=== PATIENT | female | born 1995 | race Caucasian/White ===

== ENCOUNTER 2021-11-22 16:40 | Emergency (ER) | payer OTHER ==
[~2021-11-22] VITALS: Ht 162.6 cm; Wt 109.1 kg
[2021-11-22] MEDS ORDERED: SPIR-10 PO (18:22)
[2021-11-22 19:27] VITALS: BP 139/82
== END 2021-11-22 19:36 | disposition home or self-care (01) ==
LOC: M ED 16:40
DX: S93.401A Sprain of unspecified ligament of right ankle, initial encounter (principal); S93.601A Unspecified sprain of right foot, initial encounter; W00.0XXA Fall on same level due to ice and snow, initial encounter; Y92.481 Parking lot as the place of occurrence of the external cause; E28.2 Polycystic ovarian syndrome

== ENCOUNTER → 2023-11-21 | Outpatient (CLI) | payer OTHER, SELFPAY ==
[~2023-11-21] MED LIST: ISOVUE-370 76% 100ML VIAL As Ordered ONE; SPIR-10 PO
== END ==
LOC: M RADPRO 11:29
PROVIDERS: ATTEND Obstetrics & Gynecology
DX: N97.9 Female infertility, unspecified (principal)
CPT/HCPCS: 58340; 74740; Q9967

== ENCOUNTER 2025-01-25 08:57 | Outpatient (CLI) | payer OTHER, SELFPAY ==
[~2025-01-25] VITALS: Ht 162.6 cm; Wt 107.2 kg
[~2025-01-25 08:57] MED LIST changes: -ISOVUE-370 76% 100ML VIAL As Ordered ONE
[2025-01-25 09:20] VITALS: BP 122/80
[2025-01-25] MEDS ORDERED: ZOLO50TA PO (09:25)
[2025-01-25] MEDS ORDERED: HOME MED LIST COMPLETE! XX SCH (09:25)
[2025-01-25] MEDS ORDERED: MULTTAB20 PO (09:25)
[2025-01-25] MEDS ORDERED: ECOT81TA5 PO (09:25)
[2025-01-25] MEDS ORDERED: ACET-683 PO (09:25)
== END 2025-01-25 10:20 | disposition home or self-care (01) ==
LOC: M LDO 08:57
PROVIDERS: ATTEND Specialist
DX: O26.893 Other specified pregnancy related conditions, third trimester (principal); M54.50 Low back pain, unspecified; Z3A.32 32 weeks gestation of pregnancy
CPT/HCPCS: 59025; G0463